=== PATIENT | female | born 1955 | race Two or more races ===

== ENCOUNTER 2018-01-24 09:30 | Outpatient (AMBR) | payer MEDICAID, SELFPAY ==
--- NOTE | 2017-12-31 09:00 | PT.ODAYNRPT ---
PT Outpatient Daily Note Date of Service: December 31, 2017 OP Daily Note Pediatric or Adult Patient: Adult PT >13 Visit Reasons: shoulder Outpatient Physical Therapy Treatment Date: 12/31/17 Subjective: I feel better. Objective: pls see FS Assessment: Shoulder flexion is WNL Shoulder abduction 150 deg ER is 25 degrees patient took ibuprofen this am. Plan: to continue POC toward goals. Length of Time (minutes) of Treatment: 30 Minutes Office Procedures PT Procedures PT Date of Service: 12/31/17 Therapeutic Exercise 30 minutes: Yes
--- NOTE | 2018-01-10 10:02 | PTNOTE_ITS ---
PT Outpatient Daily Note Date of Service: January 10, 2018 OP Daily Note Visit Reasons: shoulder Outpatient Physical Therapy Treatment Date: 01/10/18 Subjective: pt reports feeling better since she had to Cx last visit. she states compliance of stretching the R shoulder. Objective: see flow sheet. Assessment: pt has improved her ROM during PROM in all planes. with very little pain just observed facial expressions indicating discomfort. pt tolerates PROM with no complaints. with PROM of shoulder flexion in supine position she can touch the bed. there was more discomfort with PROM of ER. pt uses 2# dumbbell for strengthening the shoulder in all planes in seated position but cued pt to maintain trunk stable and focus on the shoulder. Plan: continue POC per PT. Length of Time (minutes) of Treatment: 30 Minutes Office Procedures PT Procedures PT Date of Service: 01/10/18 Therapeutic Exercise 15 minutes: Yes Manual Garment Sewing Machine Operator 15 minutes: Yes PT Procedures PT Date of Service: 12/31/17 Therapeutic Exercise 30 minutes: Yes
--- NOTE | 2018-01-17 08:58 | PT.ODAYNRPT ---
PT Outpatient Daily Note Date of Service: January 17, 2018 OP Daily Note Visit Reasons: shoulder Outpatient Physical Therapy Treatment Date: 01/17/18 Subjective: I feel better today. Objective: pls see FS Assessment: patient is progressing steadily toward goals. Shoulder abduction AROM is 130deg, Shoulder flexion 150 deg. with stretching shoulder flexion 0-180 deg. Shoulder abduction is 0-150 deg. Shoulder ER is 0-40 deg. IR is 0-45 deg. patient is compliant with the HEP. Plan: to continue POC toward goals. Pain Present Currently: Yes (PS5/10 during stretching. ) Length of Time (minutes) of Treatment: 30 Minutes Office Procedures PT Procedures PT Date of Service: 01/10/18 Therapeutic Exercise 15 minutes: Yes Manual Building Inspection Engineer 15 minutes: Yes PT Procedures PT Date of Service: 12/31/17 Therapeutic Exercise 30 minutes: Yes
--- NOTE | 2018-01-17 09:02 | PTNOTE_ITS ---
PT Outpatient Daily Note Date of Service: January 17, 2018 OP Daily Note Visit Reasons: shoulder Outpatient Physical Therapy Treatment Date: 01/17/18 Subjective: I feel better today. Objective: pls see FS Assessment: patient is progressing steadily toward goals. Shoulder abduction AROM is 130deg, Shoulder flexion 150 deg. with stretching shoulder flexion 0- 180 deg. Shoulder abduction is 0-150 deg. Shoulder ER is 0-40 deg. IR is 0-45 deg. patient is compliant with the HEP. Plan: to continue POC toward goals. Pain Present Currently: Yes (PS5/10 during stretching. ) Length of Time (minutes) of Treatment: 30 Minutes Office Procedures PT Procedures PT Date of Service: 01/10/18 Therapeutic Exercise 15 minutes: Yes Manual Machine Shop Inspector 15 minutes: Yes PT Procedures PT Date of Service: 12/31/17 Therapeutic Exercise 30 minutes: Yes
--- NOTE | 2018-01-24 10:15 | PT.ODAYNRPT ---
PT Outpatient Daily Note Date of Service: January 24, 2018 OP Daily Note Visit Reasons: shoulder Outpatient Physical Therapy Treatment Date: 01/24/18 Subjective: pt doing well today and states each time she leaves PT session she has more ROM in the R shoulder. Objective: see flow sheet. Assessment: noted hyper extension of the back during exercises using the thera band. made pt operator weapon locating radar front of mirror so she can see and be aware of mistake. I assisted pt by holding her back so that she does not lean backwards to compensate. pt was then able to feel the shoulder activating correctly. pt then c/o muscle fatigue of the R shoulder. educated pt about importance of correct posture and why to avoid compensation. provided same assistance while she was using barbells in both hands for shoulder ROM to increase strength. pt is now aware of her posture and advised her to continue to self correct using the mirror at home if needed. Plan: continue POC per PT. Length of Time (minutes) of Treatment: 30 Minutes Office Procedures PT Procedures PT Date of Service: 01/10/18 Therapeutic Exercise 15 minutes: Yes Manual Social Worker 15 minutes: Yes PT Procedures PT Date of Service: 12/31/17 Therapeutic Exercise 30 minutes: Yes PT Procedures PT Date of Service: 01/17/18 Therapeutic Exercise 30 minutes: Yes PT Procedures PT Date of Service: 01/24/18 Therapeutic Exercise 30 minutes: Yes
--- NOTE | 2018-01-24 11:53 | PTNOTE_ITS ---
PT Outpatient Daily Note Date of Service: January 24, 2018 OP Daily Note Visit Reasons: shoulder Outpatient Physical Therapy Treatment Date: 01/24/18 Subjective: pt doing well today and states each time she leaves PT session she has more ROM in the R shoulder. Objective: see flow sheet. Assessment: noted hyper extension of the back during exercises using the thera band. made pt vice president financial front of mirror so she can see and be aware of mistake. I assisted pt by holding her back so that she does not lean backwards to compensate. pt was then able to feel the shoulder activating correctly. pt then c/o muscle fatigue of the R shoulder. educated pt about importance of correct posture and why to avoid compensation. provided same assistance while she was using barbells in both hands for shoulder ROM to increase strength. pt is now aware of her posture and advised her to continue to self correct using the mirror at home if needed. Plan: continue POC per PT. Length of Time (minutes) of Treatment: 30 Minutes Office Procedures PT Procedures PT Date of Service: 01/10/18 Therapeutic Exercise 15 minutes: Yes Manual Process Coordinator 15 minutes: Yes PT Procedures PT Date of Service: 12/31/17 Therapeutic Exercise 30 minutes: Yes PT Procedures PT Date of Service: 01/17/18 Therapeutic Exercise 30 minutes: Yes PT Procedures PT Date of Service: 01/24/18 Therapeutic Exercise 30 minutes: Yes
== END 2018-01-24 23:59 ==
PROVIDERS: PCP Physician Assistant; Referring Provider Physician Assistant; Visit Provider Physician Assistant
DX: I10 Essential (primary) hypertension (principal)
CPT/HCPCS: 97110; 97140

== ENCOUNTER → 2024-12-22 | Outpatient (CLI) | payer MEDICARE, MEDICAID, SELFPAY ==
--- NOTE | 2024-12-22 13:00 | XR_ITS ---
Examination: Breast ultrasound complete, bilateral Date and time of exam: December 22, 2024 1329 hours Comparison September 28, 2023 INDICATIONS: Mammogram September 28, 2023 right breast 10:00 cyst left breast 12:00 nodule 13 x 9 mm 12:00 nodule 10 x 9 mm Technique: Real-time grayscale ultrasonographic imaging bilateral breasts, including all 4 quadrants as well as nipple retroareolar and axillary regions. Findings: Sonographic images right breast 10:00 cyst 3 x 4 mm 10:00 cyst 6 x 7 mm Sonographic images left breast 10:00 nodule 14 x 7 mm lobular margins 11:00 nodule 11 x 11 mm circumscribed IMPRESSION: BI-RADS Category 3: Probably benign findings One additional 6 month left breast sonogram follow-up is needed to document stability of solid nodules described above
== END | disposition home or self-care (01) ==
LOC: CDIM 12:43
PROVIDERS: Referring Provider Nurse Practitioner Primary Care; Visit Provider Nurse Practitioner Primary Care
DX: N63.22 Unspecified lump in the left breast, upper inner quadrant (principal); N60.01 Solitary cyst of right breast
CPT/HCPCS: 76641